=== PATIENT | male | born 2000 | race Caucasian/White ===

== ENCOUNTER 2022-03-05 00:05 | Emergency (ER) | payer SELFPAY ==
[~2022-03-05] VITALS: Ht 175.3 cm; Wt 86.2 kg
[2022-03-05] MEDS ORDERED: ONDANSETRON HCL/PF 4 MG/2 ML VIAL IV ONE (00:30)
--- NOTE | 2022-03-05 00:32 | NUR ---
BIBSISTER C/O N/V X3 HOURS. ETOH & SMOKED NICOTINE TONIGHT. PT A/OX4. TOLERATING R/A WELL WITH NO RESP DISTRESS.
[2022-03-05] MEDS ORDERED: ONDANSETRON HCL/PF 4 MG/2 ML VIAL ONE (00:45)
[2022-03-05] MEDS ORDERED: ONDA4TAB11 PO (01:37)
--- NOTE | 2022-03-05 01:45 | NUR ---
Patient discharged to home in stable condition. Written and verbal after care instructions given. Patient verbalizes understanding of instruction.
[2022-03-05 01:46] VITALS: BP 110/80
== END 2022-03-05 01:46 | disposition home or self-care (01) ==
LOC: ER 00:10
DX: R11.2 Nausea with vomiting, unspecified (principal); F10.129 Alcohol abuse with intoxication, unspecified; F17.200 Nicotine dependence, unspecified, uncomplicated; Y90.9 Presence of alcohol in blood, level not specified
CPT/HCPCS: 99283; 96374; 99406; J2405